=== PATIENT | female | born 1980 | race Caucasian/White ===

== ENCOUNTER → 2016-09-17 | Outpatient (CLI) | payer BC ==
[~2016-09-17] MED LIST: MTR600X PO; OMEG10007 PO; OXYC-57 PO; PRENTAB26 PO
== END | disposition home or self-care (01) ==
LOC: C.LAB1850 17:24
PROVIDERS: ATTEND Obstetrics & Gynecology
DX: Z32.00 Encounter for pregnancy test, result unknown (principal)

== ENCOUNTER → 2016-09-24 | Outpatient (CLI) | payer BC | END | disposition home or self-care (01) | LOC: C.LAB 08:16 | PROVIDERS: ATTEND Obstetrics & Gynecology | DX: Z33.1 Pregnant state, incidental (principal) ==

== ENCOUNTER → 2016-09-30 | Outpatient (CLI) | payer BC ==
[2016-09-30 13:45] LABS: URINE APPEARANCE CLEAR (CLEAR); URINE BILIRUBIN NEG (NEG); URINE COLOR YELLOW; URINE NITRITE NEG (NEG); URINE SPECIFIC GRAVITY 1.008 (1.000-1.030); UROBILINOGEN NEG (NEG)
[2016-09-30 13:52] LABS: MANUAL MICROSCOPIC REQUIRED? NO; REVIEW REQ? NO
== END | disposition home or self-care (01) ==
LOC: C.LABSPEC 12:02
PROVIDERS: ATTEND Obstetrics & Gynecology
DX: O09.529 Supervision of elderly multigravida, unspecified trimester (principal)

== ENCOUNTER → 2016-10-01 | Outpatient (CLI) | payer BC ==
[2016-10-01 15:56] LABS: BASO % 0.2 %; BASO ABS # 0.02 K/uL (0-0.2); COMPLETE YES; EOS % 0.4 %; IG% 0.2 %; LYMPH % 25.2 %; LYMPH ABS # 2.29 K/uL (1.2-3.4); MEAN CELL VOLUME 85.7 fL (80-100); MEAN CORPUSCULAR HEMOGLOBIN 29.3 pg (25-34); MEAN CORPUSCULAR HGB CONC 34.3 g/dl (32-36); MEAN PLATELET VOLUME 9.8 fL (7.4-10.4); MONO % 9.6 %; NEUT % 64.4 %; PLATELET COUNT 256 K/uL (130-400); RED BLOOD COUNT 4.67 M/uL (4.2-5.4); WHITE BLOOD COUNT 9.09 K/uL (4.8-10.8)
[2016-10-05 11:26] LABS: CHLAMYDIA TRACH RNA*** NOT DETECTED (NOT DETECTED); GC (NEIS GONORRHOEAE)RNA** NOT DETECTED (NOT DETECTED)
== END | disposition home or self-care (01) ==
LOC: C.LAB1850 14:43
PROVIDERS: ATTEND Obstetrics & Gynecology
DX: O09.213 Supervision of pregnancy with history of pre-term labor, third trimester (principal)

== ENCOUNTER → 2016-12-17 | Outpatient (CLI) | payer BC ==
[2016-12-17 13:10] LABS: GTGD 50 Grams
[2016-12-19 10:46] LABS: AFP MULTIPLE OF MEDIAN 0.64; AFPTS GESTATIONAL AGE 17.7 WEEKS; AFPTS INSULIN DEP DIABETIC? NO; AFPTS MATERNAL WT 131 LBS; ALPHA-FETOPROTEIN RACE CAUCASIAN=W; EDD DETERMINED BY ULTRASOUND; HISTORY OF NTD NO; REPEAT SAMPLE? NO
== END | disposition home or self-care (01) ==
LOC: C.LAB1850 10:36
PROVIDERS: ATTEND Obstetrics & Gynecology
DX: O09.213 Supervision of pregnancy with history of pre-term labor, third trimester (principal); O09.523 Supervision of elderly multigravida, third trimester

== ENCOUNTER → 2017-02-23 | Outpatient (CLI) | payer BC ==
[2017-02-23 13:41] LABS: URINE APPEARANCE CLEAR (CLEAR); URINE BILIRUBIN NEG (NEG); URINE COLOR YELLOW; URINE EPITHELIAL CELL AUTO 0-5 /lpf (0-5); URINE NITRITE NEG (NEG); URINE SPECIFIC GRAVITY 1.011 (1.000-1.030); UROBILINOGEN NEG (NEG)
[2017-02-23 13:47] LABS: MANUAL MICROSCOPIC REQUIRED? NO; REVIEW REQ? NO
== END | disposition home or self-care (01) ==
LOC: C.LABSPEC 11:04
PROVIDERS: ATTEND Obstetrics & Gynecology
DX: O09.523 Supervision of elderly multigravida, third trimester (principal); Z3A.00 Weeks of gestation of pregnancy not specified

== ENCOUNTER → 2017-02-26 | Outpatient (CLI) | payer BC ==
[2017-02-26 13:22] LABS: HEMATOCRIT 37.9 % (37-47)
[2017-02-26 15:00] LABS: GTGD 50 Grams
== END | disposition home or self-care (01) ==
LOC: C.LAB1850 11:09
PROVIDERS: ATTEND Obstetrics & Gynecology
DX: O09.523 Supervision of elderly multigravida, third trimester (principal)

== ENCOUNTER → 2017-03-04 | Outpatient (CLI) | payer BC | END | disposition home or self-care (01) | LOC: C.LAB1850 07:58 | PROVIDERS: ATTEND Obstetrics & Gynecology | DX: O28.1 Abnormal biochemical finding on antenatal screening of mother (principal) ==

== ENCOUNTER 2017-05-17 07:30 | Inpatient (IN) | payer BC ==
[2017-05-14 10:10] VITALS: BMI 25.0
--- NOTE | 2017-05-14 10:29 | PAT Medication Instructions ---
Service Date May 14, 2017. Current Home Medication List Fish Oil ([place]-3), 1 CAP PO QAM Multivit/Min/Iron/Fol Ac/Pren ( Vitamin), 3 TABS PO QAM Medication Instructions For Your Scheduled Surgery - Hold the following medications starting 05/15/17: Fish Oil ([place]-3), 1 CAP PO QAM - Hold the following medications the morning of surgery: Multivit/Min/Iron/Fol Ac/Pren ( Vitamin), 3 TABS PO QAM If you have any questions please call us at [phone] or [phone] or [phone]
[2017-05-14 10:59] LABS: BASO % 0.2 %; BASO ABS # 0.02 K/uL (0-0.2); COMPLETE YES; EOS % 0.4 %; HEMATOCRIT 37.9 % (37-47); IG% 0.2 %; LYMPH ABS # 2.11 K/uL (1.2-3.4); MEAN CELL VOLUME 87.5 fL (80-100); MEAN CORPUSCULAR HEMOGLOBIN 28.9 pg (25-34); MEAN PLATELET VOLUME 10.6 fL (7.4-10.4); MONO % 9.3 %; NEUT % 64.9 %; PLATELET COUNT 224 K/uL (130-400); RED BLOOD COUNT 4.33 M/uL (4.2-5.4); WHITE BLOOD COUNT 8.45 K/uL (4.8-10.8)
[2017-05-14 11:19] LABS: BUN/CREATININE RATIO 27.9 (10-20); CALCIUM 8.5 mg/dl (8.5-10.1); CREATININE 0.53 mg/dl (0.60-1.20); POTASSIUM 3.6 mmol/L (3.5-5.1)
--- NOTE | 2017-05-14 17:19 | HISTORY & PHYSICAL EXAMINATION ---
DATE OF ADMISSION: 05/17/2017 CHIEF COMPLAINT: Planned section. HISTORY OF PRESENT ILLNESS: A 36-year-old 5, para 1-1-2-3 who presents to labor and delivery on date of admission for planned section at 39+ weeks estimated gestational age. The patient denies any vaginal bleeding or leaking. She reports good movement. She denies any contractions. Her course has been complicated by advanced maternal age, diet-controlled gestational diabetes, GBS carrier, subclinical hypothyroidism, prior section x2. LABORATORY DATA: Rh positive, rubella immune, and group B strep positive in the urine. OBSTETRICAL HISTORY: Twin delivery at 31 weeks in 2012 by , term delivery in 2014. SAB x2. GYNECOLOGIC HISTORY: Had normal Pap smears. No STDs. PAST MEDICAL HISTORY: Subclinical hypothyroidism, history of anorexia, pruritus with spinal. ALLERGIES: None. MEDICATIONS: vitamins and fish oil. SOCIAL HISTORY: No tobacco, alcohol or street drug use. FAMILY HISTORY: No congenital anomalies or mental retardation. REVIEW OF SYSTEMS: All negative with the exception of gestational diabetes. PHYSICAL EXAMINATION: VITAL SIGNS: Height 5 feet 5 inches, weight 156 pounds, blood pressure 108/74, and urine negative for protein. HEART: Regular rate and rhythm. LUNGS: Clear to auscultation bilaterally. ABDOMEN: Soft, gravid, nontender, fundal height 36 cm, vertex presentation. heart tones 145. EXTREMITIES: No edema. ASSESSMENT: 1. A 39 week intrauterine . 2. Prior section, desires repeat section. 3. Diet controlled gestational diabetes. PLAN: The patient will be admitted on 05/17/2017 for planned repeat section delivery. She is aware of her risks, alternatives and complications and a consent form is signed. She is aware of her preop instructions and postop course and recovery. LILLIAN
[~2017-05-17] VITALS: Ht 165.1 cm; Wt 71.4 kg
[~2017-05-17 07:30] MED LIST changes: +CEFAZOLIN IV 2,000 MG in DEXTROSE 5% 50ML IV SCH; +CEFAZOLIN IV 2,000 MG in SYRINGE 0 ML IV SCH; +CITRIC ACID/SODIUM CITRATE 15 ML UDC PO SCH; -MTR600X PO; -OXYC-57 PO
[2017-05-17] MEDS: LACTATED RINGER'S 1000ML 1,000 ML IV SCH ×3 (08:15→09:28)
[2017-05-17 08:27] VITALS: Ht 165.1 cm; Wt 71.4 kg
[2017-05-17] MEDS ORDERED: OXYTOCIN INJ 10 UNITS/ML VIAL ONE (09:00)
[2017-05-17] MEDS ORDERED: PHENYLEPHRINE HCL INJ 10 MG/ML VIAL ONE (09:00)
[2017-05-17] MEDS ORDERED: MoRPHine SULFATE PF 1 MG/ML 10 ML AMP/VIAL ONE (09:00)
--- NOTE | 2017-05-17 09:19 | Medical Student: [facility] ---
Med Student History & Physical Date of Service May 17, 2017. Chief Complaint Previous Section History of Present Illness Source: patient, clinic records 31 year old female with , MOISES of 05/22/2017 by 1st trimester Ultrasound, 39 weeks and 2 days of GA, presents for a repeat elective section. She denies and contractions, fluid loss, bleeding, or cramping. She is feeling good movements. Her course includes diet controlled Gestational Diabetes Mellitus, GBS Carriers, and previous C-Sections. OB History G1: Date: 09/14/2012 Baby A: 3 lbs 2oz, M, C/S, Twin-Twin Transfusion Syndrome Baby B: 2 Ibs 11 oz, M, C/S G2: Date: 05/07/2014, Spontaneous at 6 weeks. G3: Date: 06/17/2014, Spontaneous at 6 weeks. G4: Date: 05/13/2015, 7 Ibs 1 oz, F, C/S MANAGER PET History Menarche: 15, LMP: 07/31/2016 , Pap Smear History: No abnormal PAP smears, last : 09/2014 Past Medical History Subclinical Hypothyroidism Past Surgical History None Social History Previous to , drinks alcohol socially. Denies any Cigarette or recreation drug use Smoking Status: Never Smoker Smokeless Tobacco Use: No Alcohol Use: none Drug Use: none Marital Status: Housing status: lives with family Occupational Status: employed Allergies Coded Allergies: No Known Allergies (Unverified , 05/14/17) Home Medications Fish Oil ([place]-3), 1 CAP PO QAM Multivit/Min/Iron/Fol Ac/Pren ( Vitamin), 3 TABS PO QAM Review of Systems Constitutional: No fever, No chills Eyes: No worsening of vision Respiratory: No shortness of breath Cardiovascular: No chest pain Abdomen: No pain, No nausea, No vomiting Musculoskeletal: No swelling Genitourinary - Female: No dysuria, No urinary incontinence Physical Exam Vital Signs: T: 98.4, BP:105/62, HR:74, RR:20 General Appearance: WD/WN, no apparent distress Respiratory/Chest: chest non-tender, lungs clear Cardiovascular: regular rate, rhythm, no edema, no gallop, no murmur Laboratory Results Test 05/14/17 10:35 White Blood Count 8.45 Red Blood Count 4.33 Hemoglobin 12.5 Hematocrit 37.9 Mean Corpuscular Volume 87.5 Mean Corpuscular Hemoglobin 28.9 Mean Corpuscular Hemoglobin Concent 33.0 Platelet Count 224 Mean Platelet Volume 10.6 Neutrophils (%) (Auto) 64.9 Lymphocytes (%) (Auto) 25.0 Monocytes (%) (Auto) 9.3 Eosinophils (%) (Auto) 0.4 Basophils (%) (Auto) 0.2 Neutrophils # (Auto) 5.48 Lymphocytes # (Auto) 2.11 Monocytes # (Auto) 0.79 Eosinophils # (Auto) 0.03 Basophils # (Auto) 0.02 RDW Standard Deviation 43.3 RDW Coefficient of Variation 13.6 Immature Granulocyte % (Auto) 0.2 Immature Granulocyte # (Auto) 0.02 Sodium Level 138 Potassium Level 3.6 Chloride Level 105 Carbon Dioxide Level 27 Anion Gap 6.0 Blood Urea Nitrogen 15 Creatinine 0.53 Est Creatinine Clear Calc Drug Dose 148.3 Estimated GFR () 142.6 Estimated GFR (Non- 123.0 BUN/Creatinine Ratio 27.9 Random Glucose 92 Calcium Level 8.5 Assessment and Plan 31 year old female, , presents for repeat Section on her scheduled date at 39 weeks and 2 days. Plan: 1. Admit to L&D 2. Monitor Mother and fetus with EFM 3. NPO 3. Prepare for Section
--- NOTE | 2017-05-17 09:37 | History & Physical Bridge Note ---
H&P Re-Evaluation Bridge Note: I have examined the patient, reviewed the History & Physical and in the interval since the performance of the History & Physical I have noted the following changes of clinical significance: No changes noted
[2017-05-17] MEDS ORDERED: ONDANSETRON INJ 2 MG/ML 2 ML VIAL ONE (10:28)
[2017-05-17] MEDS ORDERED: LACTATED RINGER'S 1000ML 1,000 ML IV SCH ×2 (10:46→12:12)
--- NOTE | 2017-05-17 10:55 | [facility] Operative Report ---
Operative Report Operative Date May 17, 2017. Pre-Operative Diagnosis A 39 week intrauterine . 2. Prior section, desires repeat section. 3. Diet controlled gestational diabetes. Post-Operative Diagnosis Same Procedure(s) Performed Repeat Caesarean Section; Delivery of a live female child at [address] Grider Tentering Machine Off Bearer Surgeon(s) Dr. Willis Estimated Blood Loss 600 cc Findings viable female infant. Normal appearing uterus, fallopian tubes and ovaries bilaterally Fluids 1500cc Specimens cord blood cord blood donation placenta-hold Drains ervin, clear urine Anesthesia spinal Complication(s) None Disposition L&D I attest to the content of the Intraoperative Record and any orders documented therein. Any exceptions are noted below.
[2017-05-17] MEDS ORDERED: DiphenhydrAMINE HCL 50 MG/ML VIAL IV PRN ×3 (11:00→12:15)
[2017-05-17] MEDS ORDERED: LANOLIN OINT EXT PRN ×4 (11:00→12:15)
[2017-05-17] MEDS ORDERED: PROMETHAZINE HCL INJ 25 MG in SODIUM CHLORIDE 0.9% 50ML 50 ML IV PRN (11:00)
[2017-05-17] MEDS ORDERED: ONDANSETRON INJ 2 MG/ML 2 ML VIAL IV PRN ×4 (11:00→12:15)
[2017-05-17] MEDS ORDERED: DIPHTHERIA/TETANUS/PERTUSSIS 0.5 ML SYR/VIAL IM. ONE (11:00)
[2017-05-17] MEDS ORDERED: ZOLPIDEM TARTRATE 5 MG TAB PO PRN (11:00)
--- NOTE | 2017-05-17 11:04 | Medical Student: [facility] ---
Immediate Operative Summary Operative Date May 17, 2017. Pre-Operative Diagnosis Repeat Section at 39 weeks and 2 days EGA, Diet Controlled GDM Post-Operative Diagnosis Repeat Section at 39 weeks and 2 days EGA, Diet Controlled GDM Procedure(s) Performed Repeat Low Transverse Section Surgeon Dr. Grider Opticianry Teacher Surgeon(s) Dr. Willis Estimated Blood Loss 600 ml Findings Viable intrauterine . Normal Fetus, Normal appearing uterus and adnexa bilaterally. Fluids (cc crystalloids) 1500 ml Specimens Placenta Chord Blood Drains Noriega Catheter, Urine output: 150 ml Anesthesia Spinal Complication(s) None Disposition L&D
--- NOTE | 2017-05-17 11:07 | Anesthesiology Progress Note ---
Anesthesia Post Op Note Date & Time May 17, 2017 at 11:06 Notes Mental Status: alert / awake / arousable, participated in evaluation Pt Amnestic to Procedure: Yes Nausea / Vomiting: adequately controlled Pain: adequately controlled Airway Patency, RR, SpO2: stable & adequate BP & HR: stable & adequate Hydration State: stable & adequate Neuraxial Anesthesia: was administered, sensory block is resolving Anesthetic Complications: no major complications apparent
--- NOTE | 2017-05-17 11:11 | OPERATIVE REPORT ---
DATE OF OPERATION: 05/17/2017 PREOPERATIVE DIAGNOSES: 1. 39-week intrauterine . 2. Prior section, desires repeat section. 3. Diet controlled gestational diabetes. 4. Advanced maternal age. POSTOPERATIVE DIAGNOSES: Same. PROCEDURES: Repeat low transverse section. SURGEON: Dr. Dayna Grider. CHAINSTITCH BINDER: Dr. Willis, PGY1. ANESTHESIA: Spinal. IV FLUIDS: 1500 mL. ESTIMATED BLOOD LOSS: 600. FINDINGS: Viable female , Apgars 9 and 10. Normal uterus, tubes and ovaries bilaterally. INDICATIONS: A 36-year-old 5, para 1-1-2-3, who presents at 39 weeks for planned section with a history of prior section x2. DESCRIPTION OF PROCEDURE: The patient was taken to the operating room and identified. After adequate spinal anesthesia was obtained, she was placed in the supine position with a leftward tilt and prepped and draped in the usual sterile fashion. The knife was used to create a Pfannenstiel skin incision and was carried down to the underlying layer of fascia. The fascia was nicked in the midline and this opening was extended laterally using Robles scissors. Stone clamps were placed in the superior and inferior aspects of the fascial incision, tenting it upwards and the underlying rectus muscles were dissected off the overlying fascia both sharply and bluntly using Robles scissors. The rectus muscles were bluntly in the midline. The peritoneum was elevated and opened up into sharply. This opening was extended superiorly and inferiorly with direct visualization of the bladder. This opening was stretched. The bladder blade was placed. The vesicouterine peritoneum was grasped with a Elisa clamp and elevated. It was opened up into sharply and extended laterally and the bladder flap was created digitally. The bladder blade was replaced. The knife was used to create a hysterotomy that was then stretched. The owner/operator's hand was placed through the hysterotomy and the bladder blade was removed. With fundal pressure, the head was flexed and delivered. A nuchal cord x1 that was loose was reduced. The mouth and nose were bulb suctioned. With further fundal pressure, the shoulders and body were delivered with ease. The was vigorous and crying at . The cord was clamped and cut and the infant was handed off to the waiting pediatricians. Cord blood for public donation was collected in the routine fashion. Cord blood for a specimen was then collected. The placenta was manually expressed. The uterus was exteriorized and cleared of all clots and debris. The hysterotomy was closed in a running interlocking fashion using 0 Vicryl followed by a second imbricating layer of 0 Vicryl. There was a bleeding site left of the midline that was stitched with interrupted suture of 0 Vicryl for excellent hemostasis. The pelvis was irrigated. The uterus was returned to the abdomen. The gutters were cleared of all clots and debris. The hysterotomy was reinspected and noted to be hemostatic. The fascia was then closed in a running fashion using 0 Vicryl. Subcutaneous fat was copiously irrigated. It was reapproximated using 2-0 chromic. The skin was then closed in a subcuticular fashion using 4-0 Vicryl. All sponge, lap and needle counts were correct x2. The patient was returned to the recovery room in stable condition. I attest to the content of the Intraoperative Record and any orders documented therein. Any exception s are noted below.
[2017-05-17] MEDS ORDERED: ATROPINE SULFATE 0.1 MG/ML 5ML SYR IV PRN (11:15)
[2017-05-17] MEDS ORDERED: EpHEDrine SULFATE INJ 50 MG/ML AMP IV PRN ×2 (11:15→11:45)
[2017-05-17] MEDS ORDERED: FENTANYL CITRATE INJ 50 MCG/1 ML 2 ML VIAL IV PRN (11:15)
[2017-05-17] MEDS ORDERED: OXYTOCIN INJ 20 UNITS in LACTATED RINGER'S 1000ML 1,000 ML IV SCH ×2 (11:30→12:12)
[2017-05-17] MEDS ORDERED: KETOROLAC TROMETHAMINE 30 MG/ML VIAL ONE (11:37)
[2017-05-17] MEDS ORDERED: LACTATED RINGER'S 1000ML 500 ML IV PRN (11:40)
[2017-05-17] MEDS ORDERED: NALOXONE HCL INJ 1 MG in SODIUM CHLORIDE 0.9% 1000ML 1,000 ML IV PRN (11:40)
[2017-05-17] MEDS ORDERED: NALBUPHINE HCL INJ 10 MG/ML AMP IV PRN (11:45)
[2017-05-17] MEDS ORDERED: FENTANYL 2MCG/ML ROPIV 1.25MG/ML 100ML BAG EPI PRN (11:45)
[2017-05-17] MEDS ORDERED: NALOXONE HCL INJ 0.4 MG/1 ML VIAL/CARP IV PRN (11:45)
[2017-05-17] MEDS ORDERED: SODIUM CHLORIDE 0.9% 1000ML 1,000 ML IV SCH (12:12)
[2017-05-17] MEDS ORDERED: KETOROLAC TROMETHAMINE 30 MG/ML VIAL IV. PRN (12:15)
[2017-05-17] MEDS ORDERED: NALOXONE HCL 0.4 MG/1 ML VIAL/CARP IV PRN (12:15)
[2017-05-17] MEDS ORDERED: OXYCODONE/ACETAMINOPHEN 5-325 TAB PO PRN ×2 (12:15)
[2017-05-17] MEDS ORDERED: HYDROCORTISONE ACETATE 25 MG SUPP PR PRN (12:15)
[2017-05-17] MEDS ORDERED: IBUPROFEN 600 MG TAB PO PRN (12:15)
[2017-05-17] MEDS ORDERED: SUPERCREAM 0.870 % 15GM JAR EXT PRN (12:15)
[2017-05-17] MEDS ORDERED: BENZOCAINE 20% AER SPR 82.5 GM CAN EXT PRN (12:15)
[2017-05-17] MEDS ORDERED: SIMETHICONE 80 MG CHEW PO SCH (13:00)
[2017-05-17 13:35] VITALS: BP 117/73; PULSE 65; TEMP 36.9; O2SAT 97
[2017-05-17 14:05] VITALS: BP 122/66; PULSE 68; TEMP 36.9; O2SAT 94
[2017-05-17 14:35] VITALS: BP 98/63; PULSE 73; TEMP 36.9; O2SAT 95
[2017-05-17] MEDS: HYDROmorphone HCL 0.5MG/ML 50 ML CASSETTE IV PRN ×2 (14:36→19:21)
[2017-05-17] MEDS: KETOROLAC TROMETHAMINE 30 MG/ML VIAL IV. PRN (18:18)
[2017-05-17] MEDS: DOCUSATE SODIUM 100 MG CAP PO SCH (19:53)
[2017-05-17] MEDS: SIMETHICONE 80 MG CHEW PO SCH (19:53)
[2017-05-17] MEDS ORDERED: DOCUSATE SODIUM 100 MG CAP PO SCH (20:00)
[2017-05-17 20:45] VITALS: BP 107/61; PULSE 66; TEMP 36.5
[2017-05-17 22:40] VITALS: BP 125/71; PULSE 66; TEMP 37.2; O2SAT 99
[2017-05-18 03:20] VITALS: BP 104/65; PULSE 61; TEMP 36.6; O2SAT 98
[2017-05-18] MEDS: KETOROLAC TROMETHAMINE 30 MG/ML VIAL IV. PRN ×2 (05:58)
[2017-05-18] MEDS ORDERED: DC PCA ONE (06:00)
[2017-05-18] MEDS ORDERED: OXYCODONE/ACETAMINOPHEN 5-325 TAB PO PRN ×2 (06:00→08:00)
[2017-05-18 06:15] LABS: BASO % 0.1 %; BASO ABS # 0.01 K/uL (0-0.2); COMPLETE YES; EOS % 0.4 %; IG% 0.4 %; LYMPH % 14.3 %; LYMPH ABS # 1.72 K/uL (1.2-3.4); MEAN CELL VOLUME 88.7 fL (80-100); MEAN CORPUSCULAR HEMOGLOBIN 29.3 pg (25-34); MEAN CORPUSCULAR HGB CONC 33.1 g/dl (32-36); MEAN PLATELET VOLUME 10.4 fL (7.4-10.4); MONO % 9.5 %; NEUT % 75.3 %; PLATELET COUNT 187 K/uL (130-400); RED BLOOD COUNT 4.06 M/uL (4.2-5.4); WHITE BLOOD COUNT 12.06 K/uL (4.8-10.8)
--- NOTE | 2017-05-18 06:45 | Progress Note ---
Subjective May 18, 2017. Subjective conversation w/ patient, physical exam Ambulation: ambulating normally Voiding: no voiding problems Passing Gas: Yes Diet Tolerance: Regular Diet Lochia: Small Feeding Type: Breast Feeding Comment: no pain issues. asking about going home today Objective Vital Signs Date Time Temp Pulse Resp B/P (MAP) Pulse Ox O2 Delivery O2 Flow Rate FiO2 05/18/17 03:20 36.6 61 17 104/65 (78) 98 Room Air 05/17/17 22:40 37.2 66 18 125/71 (89) 99 Room Air 05/17/17 22:40 99 Room Air 05/17/17 20:45 36.5 66 18 107/61 (76) Room Air 05/17/17 14:35 36.9 73 18 98/63 (75) 95 Room Air 05/17/17 14:30 Room Air 05/17/17 14:05 36.9 68 18 122/66 (84) 94 Room Air 05/17/17 13:35 36.9 65 20 117/73 (88) 97 Room Air Physical Exam General Appearance: WELL-APPEARING, WD/WN, NO APPARENT DISTRESS Respiratory/Chest: lungs clear Cardiovascular: regular rate, rhythm Abdomen: non tender, soft Fundus: Firm, Relation to Umbilicus (2 down) Incision Description: Clean, Dry & Intact Extremities: non-tender Laboratory Results Last 24 Hours Test 05/18/17 05:52 White Blood Count 12.06 K/uL Red Blood Count 4.06 M/uL Hemoglobin 11.9 g/dL Hematocrit 36.0 % Mean Corpuscular Volume 88.7 fL Mean Corpuscular Hemoglobin 29.3 pg Mean Corpuscular Hemoglobin Concent 33.1 g/dl Platelet Count 187 K/uL Mean Platelet Volume 10.4 fL Neutrophils (%) (Auto) 75.3 % Lymphocytes (%) (Auto) 14.3 % Monocytes (%) (Auto) 9.5 % Eosinophils (%) (Auto) 0.4 % Basophils (%) (Auto) 0.1 % Neutrophils # (Auto) 9.08 K/uL Lymphocytes # (Auto) 1.72 K/uL Monocytes # (Auto) 1.15 K/uL Eosinophils # (Auto) 0.05 K/uL Basophils # (Auto) 0.01 K/uL RDW Standard Deviation 45.3 fL RDW Coefficient of Variation 13.9 % Immature Granulocyte % (Auto) 0.4 % Immature Granulocyte # (Auto) 0.05 K/uL Assessment and Plan Post-, Post-Op Day#: 1 Continue Routine Care: stable, routine care. will need to stay at least until tomorrow. h/h pending.
--- NOTE | 2017-05-18 07:18 | Medical Student: [facility] ---
Med Student PEDIATRIC AUDIOLOGIST Progress Nt Date of Service May 18, 2017. Subjective conversation w/ patient, chart review Ambulation: ambulating normally Voiding: no voiding problems, no incontinence Passing Gas: Yes Diet Tolerance: Regular Diet Lochia: Moderate Feeding Type: Breast Feeding Pain: Little pain Notes: Patient is a 36 year old F now PPD #1 s/p . Her course was complicated by diet controlled GDM, carrier of GBS and repeat . The delivery itself had no complications. Today, she is ambulating well, only to and from the bathroom. She has been voiding without any problems and passing gas. She has not yet had a bowel movement. She complains of some bleeding (Lochia Rubra), and a little bit of pain but nothing the medications can't cover. She was able to tolerate her diet well and is not feeling any n/v. She is . She denies any headache, dizziness, SOB, chest pain, or pain with voiding. Blood type is AB+, Rubella: Immune, GBS +. Review of Systems Constitutional: No fever, No chills Respiratory: No shortness of breath Cardiac: No chest pain Abdomen: + pain (little bit of pain), No nausea, No vomiting Objective Vital Signs Date Time Temp Pulse Resp B/P (MAP) Pulse Ox O2 Delivery O2 Flow Rate FiO2 05/18/17 03:20 36.6 61 17 104/65 (78) 98 Room Air 05/17/17 22:40 37.2 66 18 125/71 (89) 99 Room Air 05/17/17 22:40 99 Room Air 05/17/17 20:45 36.5 66 18 107/61 (76) Room Air 05/17/17 14:35 36.9 73 18 98/63 (75) 95 Room Air 05/17/17 14:30 Room Air 05/17/17 14:05 36.9 68 18 122/66 (84) 94 Room Air 05/17/17 13:35 36.9 65 20 117/73 (88) 97 Room Air Physical Exam General Appearance: WELL-APPEARING, WD/WN Respiratory/Chest: chest non-tender, lungs clear, normal breath sounds Cardiovascular: regular rate, rhythm, no gallop, no murmur Abdomen: normal bowel sounds, soft, + tenderness Fundus: Firm, Relation to Umbilicus (Below the Umbilicus) Extremities: no pedal edema, no calf tenderness Laboratory Results Last 24 Hours Test 05/18/17 05:52 White Blood Count 12.06 K/uL Red Blood Count 4.06 M/uL Hemoglobin 11.9 g/dL Hematocrit 36.0 % Mean Corpuscular Volume 88.7 fL Mean Corpuscular Hemoglobin 29.3 pg Mean Corpuscular Hemoglobin Concent 33.1 g/dl Platelet Count 187 K/uL Mean Platelet Volume 10.4 fL Neutrophils (%) (Auto) 75.3 % Lymphocytes (%) (Auto) 14.3 % Monocytes (%) (Auto) 9.5 % Eosinophils (%) (Auto) 0.4 % Basophils (%) (Auto) 0.1 % Neutrophils # (Auto) 9.08 K/uL Lymphocytes # (Auto) 1.72 K/uL Monocytes # (Auto) 1.15 K/uL Eosinophils # (Auto) 0.05 K/uL Basophils # (Auto) 0.01 K/uL RDW Standard Deviation 45.3 fL RDW Coefficient of Variation 13.9 % Immature Granulocyte % (Auto) 0.4 % Immature Granulocyte # (Auto) 0.05 K/uL Assessment and Plan Post- (Day 1), Post-Op (s/p ) Day Number: 1 Continue Routine Care: 36 year old female, , PPD #1, s/p . Her vitals were reviewed and were stable. 1. provide routine post care. 2. predelivery hb.5, hct: 37.9. Continue to monitor for bleeding. 3. Control pain with Toradol 4. Encourage ambulation and .
[2017-05-18] MEDS ORDERED: KETOROLAC TROMETHAMINE 30 MG/ML VIAL IV. PRN (08:00)
[2017-05-18 08:26] VITALS: BP 114/70; PULSE 69; TEMP 37.3; O2SAT 96
[2017-05-18] MEDS ORDERED: MTR600X PO (08:40)
[2017-05-18] MEDS ORDERED: OXYC-57 PO (08:40)
--- NOTE | 2017-05-18 08:41 | Discharge Instructions ---
Discharge Instructions Date of Service May 18, 2017. Admission Reason for Admission: Previous Section Discharge Discharge Diagnosis / Problem: C/S Discharge Goals Goal(s): Routine recovery after Activity Recommendations Activity Limitations: per Instructions/Follow-up section . Instructions / Follow-Up Instructions / Follow-Up ACTIVITY RECOMMENDATIONS: * Gradual return to full activity over the next 2-3 weeks. * No lifting - nothing heavier than baby over the next 2-3 weeks. * Do not engage in vigorous exercise, sexual activity or sports until cleared by your physician. * Do not drive or operate any motorized equipment until cleared by your physician. * You may shower/bathe daily. MEDICATIONS: For discomfort or pain, you may use Acetaminophen (Tylenol), Ibuprofen (Advil), or Naproxen (Aleve) following the package directions. For constipation you may use Colace following the package directions. BREAST CARE: If you are not breast feeding: * Wear a supportive bra 24 hours a day for one to two weeks. * Avoid stimulating your breasts and nipples as much as possible during the first few weeks after delivery. * When taking a shower, have the warm water hit your back, not breasts. * When your breasts feel full, apply ice packs. Usually three to four times a day helps ease the discomfort. * Take a mild pain medication (Tylenol / Motrin) when you are uncomfortable. If breast feeding: * Use breast milk to lubricate nipples. Lansinoh cream may be used for sore nipples. You do not need to remove cream prior to breast feeding. If using a different brand of cream, check the label for directions regarding removal of cream prior to nursing. * Wear a supportive bra. * If having problems with breasts or breast feeding, call a aws consultant or your health care provider. SPECIAL CARE INSTRUCTIONS: When you are discharged from the hospital, it is important for you to follow the instructions listed below: * During the first week at home, you should be able to care for yourself and your baby. In addition, the usual light household activities are encouraged. * Limit your activities to the way you feel. Do not try to clean the house or move furniture. Be sensible. * If you actively engage in sports and have done so up until the time of your delivery, you may resume these activities as soon as you feel able. This may take up to one month or even longer. Use good judgment. * Continue to take your vitamins for at least six weeks after the of your baby. * Your diet need not be limited unless you were on a special diet before your delivery. Breast-feeding mothers need around 2500 calories per day and at least 64-80 ounces of fluid per day (8 to 10 glasses). * You should eat foods from the four major food groups. Crash diets or fad diets are to be avoided. Eating lean meats, fresh fruits and vegetables, low-fat dairy products, high fiber foods and a regular exercise program, will help you get back to your pre- weight without putting your health at risk. * Constipation is sometimes a problem after delivery. Take a mild laxative as needed. If breast feeding, Milk of Magnesia is acceptable to use. You may use a suppository or Fleets enema. * A daily shower or tub bath is suggested. Wash incision daily with warm soapy water and pat dry. It doesn't need to be covered unless drainage is present. * A bloody vaginal discharge will usually continue until around four weeks . A small amount of bleeding may continue for as long as six weeks. Vaginal discharge changes from the bright red bleeding after delivery to pink then brownish and finally yellowish-pink before becoming white and disappearing. * Bleeding may increase with activity. Your first period may come in 4-8 weeks. If you are breast feeding, your period may be delayed even longer. * [place] (sex) can begin whenever both you and your partner feel comfortable and do not have any form of genital infection. It is recommended that you wait at least six weeks for internal and external healing to occur. If you have questions, please talk to your health care practitioner. A condom should be used to prevent infection and . * Foreplay, gentle intercourse and lubrication is very important the first several times to prevent pain. A water-based lubricant such as K-Y jelly or Astroglide may be used. * If you have RH negative blood and your baby is RH positive, you will receive RHOGAM by injection prior to discharge. The nurse will give you a card to keep with you that has the date and place that you received RHOGAM after delivery. * During your care, you had a Rubella screen done to check for the presence of rubella antibodies in your blood. If your test was negative, you will receive a Rubella vaccine prior to discharge. This vaccine may cause a fever, soreness at the injection site and flu-like symptoms. If these symptoms persist, notify your health care practitioner. is not advised for one month after a Rubella vaccine. * Verbalizes understanding of car seat law as reviewed with patient nursing. * Car Seat hand-out given and reviewed with patient by nursing. * Shaken baby information reviewed with patient by nursing. Call you doctor if: * Heavy bleeding (saturating several pads an hour) or passing clots the size of your fist. * A fever >101 degrees F (38.3 degrees C) on two occasions four hours apart and /or chills. * Unusual pain in the pelvic or vaginal areas. * Call the doctor for any increased redness, drainage or swelling around the incision and any pain unrelieved by prescribed pain medication. * "Baby Blues" lasting longer than two weeks. If you have any questions or concerns, call your health care practitioner at . FOLLOW UP VISIT: * Please call the office at to schedule a 6 week examination. It is important you keep this appointment. It is important for you to make arrangements for either yearly or twice yearly check-ups thereafter. Current Hospital Diet Patient's current hospital diet: Regular OB Diet Discharge Diet Recommended Diet: Regular OB Diet Procedures Procedures Performed: Repeat Caesarean Section; Delivery of a live female child at 1022 Pending Studies Studies pending at discharge: no Medical Emergencies . Who to Call and When: Medical Emergencies: If at any time you feel your situation is an emergency, please call 911 immediately. . Non-Emergent Contact Non-Emergency issues call your: Charge Accounts Audit Clerk . . "Provider Documentation" section prepared by Willie Keller. . VTE Core Measure Inpt VTE Proph given/why not?: Franco Saavedra, SCD's
[2017-05-18] MEDS: FERROUS SULFATE 325 MG TAB PO SCH (10:30)
[2017-05-18] MEDS: DOCUSATE SODIUM 100 MG CAP PO SCH ×2 (10:31→19:35)
[2017-05-18] MEDS: SIMETHICONE 80 MG CHEW PO SCH ×4 (10:31→19:35)
[2017-05-18] MEDS: PRENATAL VITAMIN TAB PO SCH (10:31)
[2017-05-18] MEDS: IBUPROFEN 600 MG TAB PO PRN ×4 (11:27→23:35)
[2017-05-18 16:30] VITALS: BP 113/72; PULSE 59; TEMP 37; O2SAT 96
[2017-05-19] VITALS: BP 112/69; PULSE 52; TEMP 36.7
[2017-05-19] MEDS: IBUPROFEN 600 MG TAB PO PRN ×3 (03:33→12:18)
--- NOTE | 2017-05-19 07:22 | Medical Student: [facility] ---
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 Subjective conversation w/ patient, chart review Ambulation: ambulating normally Voiding: no voiding problems, no incontinence Passing Gas: Yes Diet Tolerance: Regular Diet Lochia: Moderate Feeding Type: Breast Feeding Pain: Moderate with ambulation. Contolled with medication Notes: 36 year old female, , PPD #2 s/p . course was complicated by diet controlled Gestational Diabetes Mellitus and a previous c- section. The had no complications. She is ambulating well, mostly to and from the nursery. She feels most of her pain when she is ambulating. She is able to void without any discomfort, has not has a bowel movement yet, but she has passed gas. She has a moderate about of lochia rubra still. She is able to tolerate a regular diet and has not had nausea or vomiting. She is exclusively breast feeding. She is hoping to be discharged today. Review of Systems Constitutional: No fever, No chills Respiratory: No shortness of breath Cardiac: No chest pain Abdomen: + pain (increased with ambulation), No nausea, No vomiting Female : No dysuria, No incontinence Objective Vital Signs Date Time Temp Pulse Resp B/P (MAP) Pulse Ox O2 Delivery O2 Flow Rate FiO2 05/19/17 00:00 Room Air 05/19/17 00:00 36.7 52 18 112/69 (83) Room Air 05/18/17 16:30 96 Room Air 05/18/17 16:30 37.0 59 16 113/72 (86) 96 Room Air 05/18/17 08:26 37.3 69 18 114/70 (85) 96 Room Air 05/18/17 08:00 Room Air Physical Exam General Appearance: WELL-APPEARING, WD/WN Respiratory/Chest: lungs clear, normal breath sounds Cardiovascular: regular rate, rhythm, no gallop, no murmur Extremities: non-tender, no pedal edema, no calf tenderness Unable to assess the patient's abdominal area Blood Type: AB+, Rubella: Immune, GBS: Positive Laboratory Results Last 24 Hours Test 05/19/17 06:00 Assessment and Plan Post- (Day 1), Post-Op (s/p ) Day Number: 2 Continue Routine Care: 36 Year old female , PPD #2, s/p , hoping for discharge today. Plan: 1.Vitals reviewed and stable 2. Provide routine routine post care, prepare for discharge today. 3. Pre-delivery hgb: 12.5, post delivery hgb: 11.9. Assess today's hgb results before discharging. 4. Control pain with Motrin. 5. Encourage continued breast feeding and ambulation
--- NOTE | 2017-05-19 07:44 | Progress Note ---
Subjective May 19, 2017. Subjective conversation w/ patient, physical exam, lab review Ambulation: ambulating normally Voiding: no voiding problems Diet Tolerance: Regular Diet Lochia: Small Feeding Type: Breast Feeding Objective Vital Signs Date Time Temp Pulse Resp B/P (MAP) Pulse Ox O2 Delivery O2 Flow Rate FiO2 05/19/17 00:00 Room Air 05/19/17 00:00 36.7 52 18 112/69 (83) Room Air 05/18/17 16:30 96 Room Air 05/18/17 16:30 37.0 59 16 113/72 (86) 96 Room Air 05/18/17 08:26 37.3 69 18 114/70 (85) 96 Room Air 05/18/17 08:00 Room Air Physical Exam General Appearance: WELL-APPEARING Abdomen: non tender Fundus: Firm Incision Description: Clean, Dry & Intact Extremities: no calf tenderness Laboratory Results Last 24 Hours Test 05/19/17 07:39 Assessment and Plan Post- (Day 1), Post-Op (s/p ) Day#: 2 Continue Routine Care: home
[2017-05-19 07:45] VITALS: BP 108/75; PULSE 65; TEMP 36.6; O2SAT 96
[2017-05-19 07:54] LABS: HEMATOCRIT 35.5 % (37-47)
[2017-05-19] MEDS: FERROUS SULFATE 325 MG TAB PO SCH (08:19)
[2017-05-19] MEDS: PRENATAL VITAMIN TAB PO SCH (08:19)
[2017-05-19] MEDS: SIMETHICONE 80 MG CHEW PO SCH ×2 (08:19→12:18)
[2017-05-19] MEDS: DOCUSATE SODIUM 100 MG CAP PO SCH (08:19)
[2017-05-19 12:30] VITALS: BP_DIAS 75; PULSE 65; TEMP 36.6
--- NOTE | 2017-05-25 11:38 | Discharge Summary ---
Discharge Summary Date of Service Date of admission: May 18, 2017. Date of discharge: 05/19/2017 Discharge Summary Admission diagnoses: #1 39 week intrauterine #2 prior section , desires repeat section #3 advanced maternal age #4 gestational diabetes of Discharge diagnoses: Same Procedures: Repeat low transverse section Brief history and Hospital course: 36-year-old 5 para 11-3 at 39 weeks estimated gestational age who presented for planned repeat section. The patient underwent the above- stated procedure without incident. Her estimated blood loss was 600 cc's. Her postop recovery and course was unremarkable. Her postop hemoglobin was 12. On her postop day #2 she was tolerating a regular diet, ambulating without difficulty and her pain was well-controlled on oral medicines. She was given appropriate discharge instructions and instructed to follow-up in 6 weeks for checkup.
== END 2017-05-19 13:00 | disposition home or self-care (01) | DRG 766 ==
LOC: EDSTATUS 07:30 → C.LD 07:38 → C.OBG 13:46
PROVIDERS: ADMIT Obstetrics & Gynecology; ATTEND Obstetrics & Gynecology
PROC: 10D00Z1 Extraction of Products of Conception, Low, Open Approach (ICD-10-PCS; principal; 2017-05-17 09:30)
DX: O34.211 Maternal care for low transverse scar from previous cesarean delivery (principal); O09.523 Supervision of elderly multigravida, third trimester; O24.420 Gestational diabetes mellitus in childbirth, diet controlled; O69.81X0 Labor and delivery complicated by cord around neck, without compression, not applicable or unspecified; Z3A.39 39 weeks gestation of pregnancy; Z37.0 Single live birth

== ENCOUNTER → 2017-06-25 | Outpatient (CLI) | payer BC ==
[~2017-06-25] MED LIST changes: -CEFAZOLIN IV 2,000 MG in DEXTROSE 5% 50ML IV SCH; -CEFAZOLIN IV 2,000 MG in SYRINGE 0 ML IV SCH; -CITRIC ACID/SODIUM CITRATE 15 ML UDC PO SCH; +MTR600X PO; +OXYC-57 PO
== END | disposition home or self-care (01) ==
LOC: C.PAPS 09:14
PROVIDERS: ATTEND Obstetrics & Gynecology
DX: Z12.4 Encounter for screening for malignant neoplasm of cervix (principal)

== ENCOUNTER → 2017-08-27 | Outpatient (CLI) | payer OTHER | END | disposition home or self-care (01) | LOC: C.LAB1850 07:50 | PROVIDERS: ATTEND Obstetrics & Gynecology | DX: O24.410 Gestational diabetes mellitus in pregnancy, diet controlled (principal); Z3A.00 Weeks of gestation of pregnancy not specified ==